=== PATIENT | female | born 1990 | race African-American/Black ===

== ENCOUNTER 2022-12-15 15:05 | Emergency (ER) | payer OTHER ==
[~2022-12-15] VITALS: Ht 160 cm; Wt 77.1 kg
== END 2022-12-15 17:34 | disposition home or self-care (01) ==
LOC: ER 15:05
DX: S49.82XA Other specified injuries of left shoulder and upper arm, initial encounter (principal); X58.XXXA Exposure to other specified factors, initial encounter; Y93.89 Activity, other specified; Y92.89 Other specified places as the place of occurrence of the external cause; Y99.9 Unspecified external cause status